=== PATIENT | female | born 1975 | race Caucasian/White ===

== ENCOUNTER 2020-08-22 17:08 | Emergency (ER) | payer MEDICAID, SELFPAY ==
[2020-08-22 17:17] VITALS: BP 120/76; PULSE 70; RESP 20; TEMP 37.2; O2SAT 95
[2020-08-22 17:32] VITALS: BP 123/78; PULSE 96; RESP 16; TEMP 37.4; O2SAT 97; BMI 30.8
--- NOTE | 2020-08-22 17:37 | ECG_ITS ---
Test Reason : SEPSIS Blood Pressure : / mmHG Vent. Rate : 076 BPM Atrial Rate : 076 BPM P-R Int : 176 ms QRS Dur : 136 ms QT Int : 434 ms P-R-T Axes : 062 -22 053 degrees QTc Int : 488 ms Normal sinus rhythm Biatrial enlargement Left bundle branch block Abnormal ECG No previous ECGs available Referred By: Lenora Gillis Electronically Signed By:ROBERTO JOHNSTON MD
--- NOTE | 2020-08-22 17:37 | XR_ITS ---
EXAMINATION: XR CHEST CLINICAL INFORMATION: Cough, fever COMPARISON: None TECHNIQUE: Frontal view of the chest was obtained. FINDINGS: No significant abnormality is noted involving the heart, lungs, mediastinum, bony thorax or soft tissues. XR/XR chest 1V IMPRESSION: No acute pulmonary disease.
[2020-08-22 17:38] VITALS: TEMP 37.6
--- NOTE | 2020-08-22 17:39 | CT_ITS ---
EXAMINATION: CT ABDOMEN AND PELVIS WITH CONTRAST CLINICAL INFORMATION: Diffuse tenderness and fever COMPARISON: None TECHNIQUE: Multidetector volumetric images were obtained from the superior aspect of the liver through the pubic symphysis following administration 85 mL of Omnipaque 350 intravenous contrast. Sagittal and coronal reformatted images were obtained on the technologist's workstation. Oral contrast: No This CT examination was performed using dose optimization techniques as appropriate, variously including the following: *Automated exposure control *Adjustment of mA and/or kV according to patient size (this includes techniques or standardized protocols for targeted exams where dose is matched to indication/reason for exam; i.e. extremities or head) *Use of iterative reconstruction technique DLP: 576 mGy-cm FINDINGS: LUNG BASES: The visualized lung bases are unremarkable. LIVER, GALLBLADDER, AND BILIARY TREE: The liver is normal in size, shape, and attenuation. No focal hepatic lesion or biliary ductal dilatation is present. The gallbladder is unremarkable with no evidence of radiopaque gallstones, gallbladder wall thickening, or obvious pericholecystic inflammatory changes. c PANCREAS: Unremarkable. SPLEEN: Unremarkable. ADRENAL GLANDS: Unremarkable. KIDNEYS AND URETERS: The kidneys are normal in size, shape, and attenuation. Punctate calcification within the interpolar cortex of the right kidney with associated overlying cortical scarring. No hydronephrosis, hydroureter, or calculi seen. No perinephric stranding. BLADDER: Unremarkable. GASTROINTESTINAL TRACT: The small and large bowel are unremarkable. The appendix is unremarkable. ABDOMINAL WALL: No significant hernia is appreciated. LYMPH NODES: Normal. VASCULAR: Aorta is atherosclerotic but normal caliber. Patent vascular structures. PELVIC VISCERA: Uterus and adnexa unremarkable. Prior bilateral tubal ligation. OSSEOUS STRUCTURES: Unremarkable. CT/CT abdomen pelvis w con IMPRESSION: * No acute findings within the abdomen or pelvis to explain the patient's symptomatology. * Incidental focal scar along the lateral interpolar cortex of the right kidney, likely post infectious in nature.
--- NOTE | 2020-08-22 17:43 | ED_ITS ---
Lipase 14 (8-78) U/L Beta HCG, Quant mIU/mL Coronavirus (PCR) (Negative) Influenza Type A (PCR) (Negative) Influenza Type B (PCR) (Negative) RSV RNA Qual (PCR) (Negative) 08/22/20 08/22/20 08/22/20 Range/Units 18:05 18:05 18:06 WBC 8.7 (4.8-10.8) X10*3/uL RBC 4.13 L (4.20-5.50) X10*6/uL Hgb 12.4 (12.0-16.0) g/dl Hct 38.2 (37-47) % MCV 92.5 (80-98) fL MCH 30.0 (27.0-33.0) pg MCHC 32.5 (31.0-35.0) g/dl RDW 13.3 (11.0-16.0) % Plt Count 287 (160-400) X10*3/uL MPV 11.6 (9.4-12.3) fL Immature Gran % (Auto) 0.2 (0.0-0.4) % Neut % (Auto) 67.1 (45-73) % Lymph % (Auto) 22.9 (20-40) % Faulkner % (Auto) 6.2 (2-11) % Eos % (Auto) 2.9 (0-4) % Baso % (Auto) 0.7 (0-2) % Lymph # (Auto) 2.0 (1.2-4.9) X10*3/uL Faulkner # (Auto) 0.5 (0.1-1.2) X10*3/uL Eos # (Auto) 0.3 (0.0-0.4) X10*3/uL Baso # (Auto) 0.1 (0.0-0.2) X10*3/uL Abs Immat Gran (auto) 0.02 (0.00-0.03) X10*3/uL Absolute Neuts (auto) 5.9 (2.0-8.3) X10*3/uL Absolute Nucleated RBC 0.000 (0.0-0.012) X10*3/uL Nucleated RBC % (auto) 0.0 (0.0-0.2) /100WBC PT (10.8-13.0) SEC INR (0.9-1.1) APTT (24.1-38.0) SEC Sodium (135-145) mmol/L Potassium (3.3-5.1) mmol/l Chloride (96-108) mmol/L Carbon Dioxide (22-29) mmol/L Anion Gap (12-20) BUN (9-16) mg/dL Creatinine (0.5-1.4) mg/dL Estim Creat Clear Calc Estimated GFR Random Glucose (60-115) mg/dL Lactic Acid (0.5-2.0) mmol/L Calcium (8.4-10.2) mg/dL Total Bilirubin (0.0-1.0) mg/dL Direct Bilirubin (0.0-0.5) mg/dL AST (5-31) U/L ALT (0-31) U/L Alkaline Phosphatase (39-117) U/L Troponin I High Sens 5.1 (<3.5-17.0) ng/L Total Protein (6.5-8.0) g/dL Albumin (3.5-5.0) g/dL Lipase (8-78) U/L Beta HCG, Quant < 2 mIU/mL Coronavirus (PCR) (Negative) Influenza Type A (PCR) (Negative) Influenza Type B (PCR) (Negative) RSV RNA Qual (PCR) (Negative) 08/22/20 Range/Units 20:11 WBC (4.8-10.8) X10*3/uL RBC (4.20-5.50) X10*6/uL Hgb (12.0-16.0) g/dl Hct (37-47) % MCV (80-98) fL MCH (27.0-33.0) pg MCHC (31.0-35.0) g/dl RDW (11.0-16.0) % Plt Count (160-400) X10*3/uL MPV (9.4-12.3) fL Immature Gran % (Auto) (0.0-0.4) % Neut % (Auto) (45-73) % Lymph % (Auto) (20-40) % Faulkner % (Auto) (2-11) % Eos % (Auto) (0-4) % Baso % (Auto) (0-2) % Lymph # (Auto) (1.2-4.9) X10*3/uL Faulkner # (Auto) (0.1-1.2) X10*3/uL Eos # (Auto) (0.0-0.4) X10*3/uL Baso # (Auto) (0.0-0.2) X10*3/uL Abs Immat Gran (auto) (0.00-0.03) X10*3/uL Absolute Neuts (auto) (2.0-8.3) X10*3/uL Absolute Nucleated RBC (0.0-0.012) X10*3/uL Nucleated RBC % (auto) (0.0-0.2) /100WBC PT (10.8-13.0) SEC INR (0.9-1.1) APTT (24.1-38.0) SEC Sodium (135-145) mmol/L Potassium (3.3-5.1) mmol/l Chloride (96-108) mmol/L Carbon Dioxide (22-29) mmol/L Anion Gap (12-20) BUN (9-16) mg/dL Creatinine (0.5-1.4) mg/dL Estim Creat Clear Calc Estimated GFR Random Glucose (60-115) mg/dL Lactic Acid (0.5-2.0) mmol/L Calcium (8.4-10.2) mg/dL Total Bilirubin (0.0-1.0) mg/dL Direct Bilirubin (0.0-0.5) mg/dL AST (5-31) U/L ALT (0-31) U/L Alkaline Phosphatase (39-117) U/L Troponin I High Sens (<3.5-17.0) ng/L Total Protein (6.5-8.0) g/dL Albumin (3.5-5.0) g/dL Lipase (8-78) U/L Beta HCG, Quant mIU/mL Coronavirus (PCR) NEGATIVE (Negative) Influenza Type A (PCR) NEGATIVE (Negative) Influenza Type B (PCR) NEGATIVE (Negative) RSV RNA Qual (PCR) NEGATIVE (Negative) Imaging Data Chest x-ray: Attestation: I personally reviewed and interpreted this imaging study as follows: Radiologist's impression: EXAMINATION: XR CHEST CLINICAL INFORMATION: Cough, fever COMPARISON: None TECHNIQUE: Frontal view of the chest was obtained. FINDINGS: No significant abnormality is noted involving the heart, lungs, mediastinum, bony thorax or soft tissues. XR/XR chest 1V IMPRESSION: No acute pulmonary disease. CT scan - abdomen: Attestation: I personally reviewed and interpreted this imaging study as follows: Radiologist's impression: FINDINGS: LUNG BASES: The visualized lung bases are unremarkable. LIVER, GALLBLADDER, AND BILIARY TREE: The liver is normal in size, shape, and attenuation. No focal hepatic lesion or biliary ductal dilatation is present. The gallbladder is unremarkable with no evidence of radiopaque gallstones, gallbladder wall thickening, or obvious pericholecystic inflammatory changes. c PANCREAS: Unremarkable. SPLEEN: Unremarkable. ADRENAL GLANDS: Unremarkable. KIDNEYS AND URETERS: The kidneys are normal in size, shape, and attenuation. Punctate calcification within the interpolar cortex of the right kidney with associated overlying cortical scarring. No hydronephrosis, hydroureter, or calculi seen. No perinephric stranding. BLADDER: Unremarkable. GASTROINTESTINAL TRACT: The small and large bowel are unremarkable. The appendix is unremarkable. ABDOMINAL WALL: No significant hernia is appreciated. LYMPH NODES: Normal. VASCULAR: Aorta is atherosclerotic but normal caliber. Patent vascular structures. PELVIC VISCERA: Uterus and adnexa unremarkable. Prior bilateral tubal ligation. OSSEOUS STRUCTURES: Unremarkable. CT/CT abdomen pelvis w con IMPRESSION: * No acute findings within the abdomen or pelvis to explain the patient's symptomatology. * Incidental focal scar along the lateral interpolar cortex of the right kidney, likely post infectious in nature. ECG Data Attestation: I personally reviewed and interpreted this ECG as follows: Prior ECG tracings: not available for review Interpretation: Vent. Rate : 076 BPM Atrial Rate : 076 BPM P-R Int : 176 ms QRS Dur : 136 ms QT Int : 434 ms P-R-T Axes : 062 -22 053 degrees QTc Int : 488 ms Normal sinus rhythm Biatrial enlargement Left bundle branch block Abnormal ECG No previous ECGs available Discharge Plan Discharge Clinical Impression: Abdominal pain Qualifiers: Abdominal location: generalized Qualified Code(s): R10.84 - Generalized abdominal pain Urinary tract infection Qualifiers: Urinary tract infection type: acute cystitis Hematuria presence: without hematuria Qualified Code(s): N30.00 - Acute cystitis without hematuria Patient Disposition: Home, Self-Care Instructions: Urinary Tract Infection in Women (ED), Abdominal Pain (ED) Additional Instructions: you were evaluated for abdominal pain and bladder spasms. We are treating you for urinary tract infection with Levaquin. Please take this medication as directed. Medication is an antibiotic. We gave Pyridium for bladder spasms. This medication will turn your urine bright orange. This is a normal side effect. For chronic abdominal pain, we prescribed Bentyl. Please take this medication as directed. Drink plenty of fluids. If fever, abdominal pain, symptoms worsen please return to the emergency department immediately. Thank you for choosing this emergency department for evaluation. Please follo w-up with primary care physician as needed. Return to the emergency department for any new, concerning, or worsening symptoms. Prescriptions: New levofloxacin 500 mg tablet 500 mg PO DAILY 4 Days Qty: 4 RF: 0 phenazopyridine [Pyridium] 200 mg tablet 200 mg PO TID PRN (Reason: pain) 3 Days Qty: 9 RF: 0 dicyclomine 20 mg tablet 20 mg PO TID PRN (Reason: pain) Qty: 20 RF: 0 Interventions: ED Discharge Assessment Last Done: 08/22/20 20:40 Discharge Date/Time: 08/22/20 20:41 HPI - General Adult General Chief complaint: General Medical Stated complaint: FLU LIKE SYMPTOMS Time Seen by Provider: 08/22/20 17:37 Source: patient Mode of arrival: ambulatory Limitations: no limitations History of Present Illness HPI narrative: a 45-year-old female with unknown past medical history presents with abdominal pain for 1 month, fevers off and on for the past several days the highest being yesterday at 105?, cough, Hematuria and fatigue. she states that she is visiting from [facility]. She states that everything in her body hurts, reports using cocaine and 1 of her friends Percocets. She appears anxious, is speaking quickly and is tangential when answering questions. She denies chest pain or pressure, palpitations, pain on inspiration, and edema. Onset (ago): month(s) Location: back and abdomen Severity: severe Severity scale (1-10): 10 Quality: aching and constant Pain Consistency: constant Relieving factors: none Exacerbating factors: eating and movement Associated symptoms: cough, fever/chills, headaches and nausea/vomiting Related Data Previous Rx's Medication Instructions Recorded dicyclomine 20 mg PO TID PRN #20 tab 08/22/20 levofloxacin 500 mg PO DAILY 4 Days #4 tab 08/22/20 phenazopyridine [Pyridium] 200 mg PO TID PRN 3 Days #9 tab 08/22/20 Allergies Allergy/AdvReac Type Severity Reaction Status Date / Time Sulfa (Sulfonamide AdvReac Nausea Verified 08/22/20 17:31 Antibiotics) Review of Systems Review of Systems: Constitutional: No Weight loss, Pos Fever, Pos Chills, No Night Sweats, Pos Fatigue, Pos Malaise ENT/Mouth: No Hearing loss, No Ear Pain, No Nasal Congestion, No Sinus Pain, No Hoarseness, No sore throat, No Rhinorrhea, No Swallowing Difficulty Eyes: No Eye Pain, No Swelling, No Redness, No Foreign Body, No Discharge, No Vision Changes Cardiovascular: No Chest Pain, No SOB, No Dyspnea on Exertion, No Orthopnea, No Edema, No Palpitations Respiratory:Pos Cough, No Sputum, No Wheezing, No Smoke Exposure, No Dyspnea Gastrointestinal: Pos Nausea, No Vomiting, No Diarrhea, Pos abdominal Pain, No Hematochezia, No Melena Genitourinary: no irregular bleeding, Pos Dysuria, Pos Urinary Frequency, Pos Hematuria, No Urinary Incontinence, Pos Urgency, Pos Flank Pain Musculoskeletal: No joint pain, No Myalgias, No Joint Swelling Skin: No Skin Lesions, No rash Neuro: No Weakness, No Numbness, No Paresthesias, No Loss of Consciousness, No Dizziness, No Headache Psych: No Anxiety/Panic, No Depression, No SI/HI/AH/VH, No Social Issues Heme/Lymph: No Bruising, No Bleeding,No Lymphadenopathy Endocrine: No Polyuria, No Polydipsia, No Temperature Intolerance Yes all other systems are reviewed and are negative [facility] Past Medical History Attestation statement: The following information was validated with the patient. Social History Social History Alcohol intake: never Smoking Status: Never smoker Use of substances other than those prescribed or required for medical reasons: No Advance Directives: No Advance Directives Information Provided: No Physical Exam Vital Signs: Vital Signs: Last Vital Signs Temp 99.6 F 08/22/20 17:38 Pulse 96 08/22/20 17:32 Resp 16 08/22/20 17:32 BP 123/78 08/22/20 17:32 Pulse Ox 97 08/22/20 17:32 Body Mass Index 30.8 Appearance: Alert. Oriented X3. Moderate distress. Eyes: Pupils equal, round and reactive to light. ENT: Pharynx normal. Neck: Normal inspection. Neck supple. CVS: Normal heart rate and rhythm. Pulses normal. Respiratory: No respiratory distress. Breath sounds normal. Abdomen: Soft and diffusely tender, guarding Skin: Skin warm and dry. Normal skin color. Normal skin turgor. Extremities: No lower extremity edema. Neuro: No motor deficit. No sensory deficit. Course Course Course Narrative: 45-year-old female presents with fevers, states that the fevers have been high as 105?, diffuse abdominal pain, hematuria, admits to using cocaine and her friends Percocet. Plan of care is to rule out sepsis, CT scan of abdomen to rule out acute abdomen, kidney stones, UTI and ACS. we will give prophylactic dose of ceftriaxone, and initiate fluid resuscitation. CBC and Chem 7 are unremarkable no indication of sepsis at this time. We are still waiting on urine and COVID testing. CT scan of abdomen and pelvis negative for acute findings needing emergent intervention. Chest x-ray is negative for acute findings needing emergent intervention. Patient states that she cannot give urine, COVID test is negative. I feel that patient does not want to give urine because she does not want toxicology screen although she does admit to using cocaine and opioids. We will treat her for UTI based on her symptoms. She was advised to follow-up with primary care physician back in [facility]. Patient verbalized understanding of and agrees to plan of care discharge home. Medical Decision Making Differential Diagnosis Differential Diagnosis: Sepsis, kidney stones, acute abdomen, pneumonia Medical Records Medical records reviewed: Yes I reviewed the patient's medical records. Lab Data Lab results reviewed: Yes I reviewed the patient's lab results. Result diagrams: 08/22/20 18:06 08/22/20 18:05 Labs: Lab Results 08/22/20 08/22/20 08/22/20 Range/Units 18:05 18:05 18:05 WBC (4.8-10.8) X10*3/uL RBC (4.20-5.50) X10*6/uL Hgb (12.0-16.0) g/dl Hct (37-47) % MCV (80-98) fL MCH (27.0-33.0) pg MCHC (31.0-35.0) g/dl RDW (11.0-16.0) % Plt Count (160-400) X10*3/uL MPV (9.4-12.3) fL Immature Gran % (Auto) (0.0-0.4) % Neut % (Auto) (45-73) % Lymph % (Auto) (20-40) % Faulkner % (Auto) (2-11) % Eos % (Auto) (0-4) % Baso % (Auto) (0-2) % Lymph # (Auto) (1.2-4.9) X10*3/uL Faulkner # (Auto) (0.1-1.2) X10*3/uL Eos # (Auto) (0.0-0.4) X10*3/uL Baso # (Auto) (0.0-0.2) X10*3/uL Abs Immat Gran (auto) (0.00-0.03) X10*3/uL Absolute Neuts (auto) (2.0-8.3) X10*3/uL Absolute Nucleated RBC (0.0-0.012) X10*3/uL Nucleated RBC % (auto) (0.0-0.2) /100WBC PT 11.5 (10.8-13.0) SEC INR 1.0 (0.9-1.1) APTT 35.3 (24.1-38.0) SEC Sodium 139 (135-145) mmol/L Potassium 3.7 (3.3-5.1) mmol/l Chloride 100 (96-108) mmol/L Carbon Dioxide 29 (22-29) mmol/L Anion Gap 14 (12-20) BUN 13 (9-16) mg/dL Creatinine 0.84 (0.5-1.4) mg/dL Estim Creat Clear Calc 83.2 Estimated GFR > 60 Random Glucose 85 (60-115) mg/dL Lactic Acid 0.7 (0.5-2.0) mmol/L Calcium 8.5 (8.4-10.2) mg/dL Total Bilirubin 0.4 (0.0-1.0) mg/dL Direct Bilirubin 0.2 (0.0-0.5) mg/dL AST 20 (5-31) U/L ALT 20 (0-31) U/L Alkaline Phosphatase 75 (39-117) U/L Troponin I High Sens (<3.5-17.0) ng/L Total Protein 6.6 (6.5-8.0) g/dL Albumin 4.0 (3.5-5.0) g/dL
[2020-08-22 18:14] LABS: MANUAL DIFF FLAG NO
[2020-08-22 18:20] LABS: Basophils Absolute Auto 0.1 X10*3/uL (0.0-0.2); Basophils Percent Auto 0.7 % (0-2); Eosinophils Absolute Auto 0.3 X10*3/uL (0.0-0.4); Eosinophils Percent Auto 2.9 % (0-4); Hematocrit 38.2 % (37-47); Hemoglobin 12.4 g/dl (12.0-16.0); Imm Gran Abs Auto 0.02 X10*3/uL (0.00-0.03); Imm Gran Pct Auto 0.2 % (0.0-0.4); Lymphocytes Percent Auto 22.9 % (20-40); Mean Corpuscular HGB Conc 32.5 g/dl (31.0-35.0); Mean Corpuscular Volume 92.5 fL (80-98); Mean Platelet Volume 11.6 fL (9.4-12.3); Monocytes Absolute Auto 0.5 X10*3/uL (0.1-1.2); Monocytes Percent Auto 6.2 % (2-11); Neutrophils Absolute Auto 5.9 X10*3/uL (2.0-8.3); Neutrophils Percent Auto 67.1 % (45-73); Platelet Count 287 X10*3/uL (160-400); Red Blood Count 4.13 X10*6/uL (4.20-5.50); Red Cell Distribution Width 13.3 % (11.0-16.0); White Blood Count 8.7 X10*3/uL (4.8-10.8)
[2020-08-22] MEDS: Ketorolac Tromethamine 30 MG/ML VIAL IVPUSH (18:23)
[2020-08-22] MEDS: ondansetron HCL 4 MG/2 ML VIAL IVPUSH (18:23)
[2020-08-22] MEDS: 0.9 % Sodium Chloride 1,000 ML 999 ML IVCONT (18:23)
[2020-08-22 18:33] LABS: Prothrombin Time 11.5 SEC (10.8-13.0)
[2020-08-22 18:35] LABS: Partial Thromboplastin Time 35.3 SEC (24.1-38.0)
[2020-08-22 18:36] LABS: Lactic Acid 0.7 mmol/L (0.5-2.0)
[2020-08-22] MEDS: cefTRIAXone sodium 1 GM in 0.9 % Sodium Chloride 100 ML IV (18:37)
[2020-08-22 18:41] LABS: Alanine Aminotransferase 20 U/L (0-31); Alkaline Phosphatase 75 U/L (39-117); Anion Gap 14 (12-20); Aspartate Amino Transferase 20 U/L (5-31); Bilirubin Direct 0.2 mg/dL (0.0-0.5); Bilirubin Total 0.4 mg/dL (0.0-1.0); Blood Urea Nitrogen 13 mg/dL (9-16); Calcium 8.5 mg/dL (8.4-10.2); Carbon Dioxide 29 mmol/L (22-29); Chloride 100 mmol/L (96-108); Creatinine Clr Calc Pharmacy 83.2; Estimated Glomerular Filt Rate > 60; Glucose Random 85 mg/dL (60-115); Lipase 14 U/L (8-78); Potassium 3.7 mmol/l (3.3-5.1); Sodium 139 mmol/L (135-145); Total Protein 6.6 g/dL (6.5-8.0)
[2020-08-22 18:43] LABS: Troponin-I High Sensitivity 5.1 ng/L (<3.5-17.0)
[2020-08-22] MEDS: iohexoL 350 MG/ML 100 ML INFUS..BTL IV (19:19)
[2020-08-22 19:20] LABS: HCG Quantitative < 2 mIU/mL
[2020-08-22] MEDS: Dicyclomine HCl 10 MG CAPSULE 20 MG PO (20:34)
[2020-08-22] MEDS: Phenazopyridine HCL 200 MG TABLET PO (20:34)
[2020-08-22] MEDS: levoFLOXacin 500 MG TABLET PO (20:35)
[2020-08-22 20:59] LABS: Influenza A PCR NEGATIVE (Negative); Influenza B PCR NEGATIVE (Negative); Resp Syncy Virus RNA Qual PCR NEGATIVE (Negative); SARS COV2 PCR INHOUSE NEGATIVE (Negative)
== END 2020-08-22 20:41 | disposition home or self-care (01) ==
PROVIDERS: Nurse Practitioner Family; Emergency Provider Emergency Medicine
DX: N30.00 Acute cystitis without hematuria (principal); R50.9 Fever, unspecified; R10.84 Generalized abdominal pain; R05 Cough; Z79.899 Other long term (current) drug therapy; Z20.828 Contact with and (suspected) exposure to other viral communicable diseases
CPT/HCPCS: 0241U; 36415; 71045; 74177; 80048; 80076; 83605; 83690; 84484; 84702; 85025; 85610; 85730; 87040; 93005; 96361; 96365; 96375; 99284; J0696; J1885; J2405; Q9967